=== PATIENT | male | born 2000 | race Caucasian/White ===

== ENCOUNTER 2021-01-27 23:18 | Emergency (ER) | payer OTHER ==
[~2021-01-27] VITALS: Ht 180.3 cm; Wt 70.5 kg
[2021-01-27 23:24] VITALS: TEMP 98.4
[2021-01-28] VITALS: BP 142/70; PULSE 67
== END 2021-01-28 00:01 | disposition home or self-care (01) ==
LOC: COL.ER 23:18
DX: S93.401A Sprain of unspecified ligament of right ankle, initial encounter (principal); V00.131A Fall from skateboard, initial encounter